=== PATIENT | male | born 1970 | race Asian ===

== ENCOUNTER 2019-07-03 20:26 | Emergency (ER) | payer BC ==
[~2019-07-03] VITALS: Ht 165.1 cm; Wt 80.7 kg
[2019-07-03 20:31] VITALS: Ht 165.1 cm; Wt 80.7 kg
[2019-07-03 21:06] LABS: PLATELET COUNT 323 x10^3mcL (130-400); RED CELL DISTRIBUTION WIDTH 13.6 % (11.5-14.5)
[2019-07-03 21:07] LABS: microscopic required? NO
[2019-07-03 21:08] LABS: BASOPHIL % 0 % (0-2)
[2019-07-03 21:14] LABS: UA SPECIFIC GRAVITY 1.015 (1.005-1.035); urine erythrocyte NEGATIVE (NEGATIVE)
[2019-07-03 21:14] LABS: CARBON DIOXIDE 25.4 mmol/L (21-32); CHLORIDE SERUM 105 mmol/L (98-107); CREATININE SERUM 1.1 mg/dL (0.7-1.3); GFR1 > 60 mL/min; GLUCOSE SERUM 121 mg/dL (74-106); POTASSIUM SERUM 3.9 mmol/L (3.5-5.1); SODIUM SERUM 140 mmol/L (136-145)
[2019-07-03 21:29] LABS: ALKALINE PHOSPHATASE 74 U/L (46-116); ALT/SGPT 60 U/L (16-63); AST/SGOT 25 U/L (15-37); BILIRUBIN TOTAL 0.3 mg/dL (0.20-1.00); LIPASE 87 IU/L (73-393); TOTAL PROTEIN, SERUM 7.8 g/dL (6.4-8.2)
[2019-07-03 22:35] VITALS: BP 123/83
== END 2019-07-03 22:35 | disposition home or self-care (01) ==
LOC: ED 20:26
PROVIDERS: Emergency Medicine
DX: R10.12 Left upper quadrant pain (principal); Z90.49 Acquired absence of other specified parts of digestive tract
CPT/HCPCS: J0500; J1885; J2270; J2405; J7030

== ENCOUNTER 2019-08-07 17:57 | Emergency (ER) | payer BC ==
[~2019-08-07] VITALS: Ht 165.1 cm; Wt 78.5 kg
[2019-08-07 18:02] VITALS: Ht 165.1 cm; Wt 78.5 kg
[2019-08-07 19:39] VITALS: BP 152/90
== END 2019-08-07 19:39 | disposition home or self-care (01) ==
LOC: ED 17:57
DX: K29.70 Gastritis, unspecified, without bleeding (principal); J45.909 Unspecified asthma, uncomplicated; Z90.49 Acquired absence of other specified parts of digestive tract
CPT/HCPCS: J7030